=== PATIENT | female | born 1950 | race Caucasian/White ===

== ENCOUNTER → 2017-09-10 | Outpatient (CLI) | payer MEDICARE ==
[~2017-09-10] MED LIST: AMITRIPTYLINE H75 M1 PO; ASPIRIN81 M2 PO; BIOTIN-D1 GM PO; CALCIUM STOOL240 MG PO; CRESTOR20 MG PO; CYMBALTA30 MG PO; FLUOXETINE HCL40 MG PO; LISINOPRIL40 MG PO; NEXIUM40 MG PO
--- NOTE | 2017-09-10 14:48 | EXE ---
[place] [address] STRESS ECHOCARDIOGRAM Name: ROOSEVELTHECTOR [place] Room: [facility]#: [id number] Admission: 09/10/17 Attend Phys: Lexis Huff MD Discharge: Date of : 48 Date of Service: 09/10/17 1448 Report #: [id number] THIS REPORT FOR: //name// APPROVED REPORT Study performed: 09/10/2017 13:30:01 Exam: Dobutamine Stress Echo Indication: Dyspnea Patient Location: Out-Patient Stress Nurse: Zita Brown RN Supervising Physician: Luis Lagunas MD Status: routine Ht: 5 ft 5 in HR: 85 bpm BP: 162/87 mmHg Rhythm: NSR Medical History Medical History: CAD, [place] Cardiac Risk Factors: FHX of CAD, HTN, PVD Previous Cardiac Procedures: PCI Procedure The patient underwent a Pharmacological Stress Test using Dobutamine. Blood pressure, heart rate, and EKG were monitored. An Echocardiogram was performed by preventative maintenance technician in four stages in quad fashion. At peak stress, four selected images were obtained and placed side by side with resting images for comparison. Stress Test Details Stress Test: Pharmacological Stress Test using Dobutamine. HR Resting HR: 85 bpm Max Heart Rate (APMHR): 153 bpm Max HR Achieved: 125 bpm Target HR (85% APMHR): 130 bpm % of APMHR: 81 Recovery HR: 99 bpm HR response to stress: Normal HR response to stress BP Resting BP: 162/87 mmHg Max BP: 111/65 mmHg Recovery BP: 112/74 [place] [address] STRESS ECHOCARDIOGRAM Name: HECTOR ALBERT Room: [facility]#: [id number] Admission: 09/10/17 Attend Phys: Lexis Huff MD Discharge: Date of : 48 Date of Service: 09/10/17 1448 Report #: [id number] Clinical Reason for Termination: Completed protocol Pre-Stress Echo The resting Echocardiogram showed normal left ventricular contractility with an estimated Ejection Fraction of about 60-65%. Normal wall motion in all segments on baseline images. Post-Stress Echo The stress Echocardiogram showed normal left ventricular contractility with an estimated Ejection Fraction of about >70%. Normal augmentation of wall motion in all segments on post stress images. Conclusion Clinical Response: Non-ischemic Stress ECG Response: Non-ischemic Stress Echo Images: Non-ischemic Other Information Study Quality: Good <ELECTRONICALLY SIGNED> By: Luis Lagunas MD, [facility] 09/10/17 1448 1448 1448 Luis Lagunas MD, FACC /INF
== END ==
LOC: M.CRD 12:27
DX: I51.7 Cardiomegaly (principal); N95.1 Menopausal and female climacteric states; I25.10 Atherosclerotic heart disease of native coronary artery without angina pectoris